=== PATIENT | male | born 1940 | race Caucasian/White ===

== ENCOUNTER → 2019-04-14 05:38 | Day surgery (SDC) | payer MEDICARE ==
[~2019-04-14 05:38] MED LIST: Buffered Lidocaine 1% SYRIN* 1 ML/SYRINGE INTRADERM ONE; Dexamethasone IV* 4 MG/ML 1 ML (4 MG) IV SLOW PU ONE; Dexamethasone IV* 4 MG/ML 1 ML (4 MG) ONE; DiMENhydriNATE IV* 50 MG/ML VIAL IV PUSH PRN; EPINEPHRINE 1 MG/ML 1 ML VIAL ONE; Famotidine IV* 10 MG/ML 2 ML (20 mg) IV ONE; Famotidine IV* 10 MG/ML 2 ML (20 mg) ONE; HYDROcodone/ACETAMIN 5-325 MG* 1 TAB PO PRN; Lactated Ringers 1000 ML Bag* 1,000 ML IV SCH; Lidocaine 2% PF * 5 ML VIAL ONE; Lidocaine 4% TOPICAL* 50 ML TOP.SOLN ONE; Naloxone* 0.4 MG/ML 1 ML VIAL IV PRN; Ondansetron INJ* 2 MG/ML VIAL ONE; Oxymetazoline 0.05% NASAL SPR* 15 ML BTL ONE; Propofol* 10 MG/ML 20 ML BTL ONE; Succinylcholine* 20 MG/ML 10 ML VIAL ONE; fentaNYL* 50 MCG/ML 2 ML VIAL (100 MCG VIAL) IV PRN; fentaNYL* 50 MCG/ML 2 ML VIAL (100 MCG VIAL) ONE; oxyCODONE/Acetamin 5/325 MG* TAB PO PRN
[2019-04-14 09:13] VITALS: BP 154/70
--- NOTE | 2019-04-14 11:27 | OP ---
DATE OF OPERATION: 04/14/19 - [facility] DATE OF : 38 SURGEON: Dr. Victor. ANESTHESIA: General endotracheal anesthesia. 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 OPERATIVE PROCEDURE: Oropharyngeal and laryngeal endoscopy and left tonsillectomy under general endotracheal anesthesia. COMPLICATIONS: None. DISPOSITION: Good. SPECIMEN: Left tonsil. ESTIMATED BLOOD LOSS: Minimal. INDICATION: The patient has metastatic squamous cell carcinoma. He has a firm fixed mass on the inferomedial aspect of his mandible, but there is no obvious primary cancer either on examination nor on his PET scan. However, there was some activity in the left base of tonsil area on the PET scan that was not reported and the thought is perhaps this is the primary and he was taken to the operating room for endoscopy and possible tonsillectomy. Preoperatively was the first admit then. We had discussed all of this. We had discussed the behavior of metastatic cancer through the lymph nodes. We discussed the risks of surgery including breaking a lower tooth through he is edentulous upper and the risk of bleeding after a tonsillectomy. We reviewed the postoperative course after tonsillectomy and pain management. DESCRIPTION OF PROCEDURE: He was taken to the operating room and placed in the supine position on the operating table. General anesthesia was induced and orotracheally intubated, turned, and draped for the surgery. Initially, I used bimanual palpation to palpate his neck, oral cavity along his buccal mucosa, gingival buccal groove, floor of mouth, back into the retromolar trigone, tongue , base of tongue, nasopharynx, oropharynx, hypopharynx and there was no definitive mass seen. The left tonsil does feel a bit firm. Endoscopy was then performed with the Jako II laryngoscope and his oral cavity, oropharynx, hypopharynx, vallecula, base of tongue, pyriform sinuses, larynx were all examined and there were no masses or lesions that I am able to visualize. Because of the firmness of the left tonsil, a tonsillectomy was performed. The Douglas-Roscoe mouth gag was inserted, retraction was applied, it was suspended from the [place] stand. The left tonsil was grasped, medial retraction was applied. Using Bovie cautery, it was dissected along its capsule, removing it from the underlying pharyngeal musculature. Hemostasis was ensured with the suction cautery. The tonsil was put in formalin for pathology. Hemostasis was ensured. Orogastric tube was inserted into the stomach. Stomach contents were suctioned. Douglas-Roscoe mouth gag and red rubber catheter were released and removed. I again palpated with bimanual palpation as previously described and again did not feel any masses that were suspicious at this time. The patient tolerated the procedure well, no complications, and transferred to the recovery room in stable condition. [id number] #: [id number] MTDD
== END | disposition home or self-care (01) ==
LOC: OR 05:38
PROVIDERS: ATTEND Otolaryngology
DX: C77.0 Secondary and unspecified malignant neoplasm of lymph nodes of head, face and neck (principal); R22.1 Localized swelling, mass and lump, neck; J35.8 Other chronic diseases of tonsils and adenoids; J36 Peritonsillar abscess; Z72.0 Tobacco use; E78.5 Hyperlipidemia, unspecified; I10 Essential (primary) hypertension; I45.10 Unspecified right bundle-branch block
CPT/HCPCS: 88304; A9270-GY; J0330; J1100; J2405; J2704; J3010